=== PATIENT | male | born 1990 | race Caucasian/White ===

== ENCOUNTER 2019-02-25 05:37 | Outpatient (CLI) | payer OTHER ==
[~2019-02-25] VITALS: Ht 165.1 cm; Wt 64.9 kg
== END 2019-02-25 13:19 | disposition home or self-care (01) ==
LOC: PREOP 05:37
PROVIDERS: ATTEND Surgery
DX: Z01.818 Encounter for other preprocedural examination (principal)

== ENCOUNTER 2019-02-27 12:53 | Day surgery (SDC) | payer OTHER ==
[~2019-02-27] VITALS: Ht 165.1 cm; Wt 64.9 kg
--- OUTSIDE RECORDS SUMMARY | 2019-02-27 12:58 | XMS REPORT | Continuity of Care Document ---
Author Organization Unknown Address Unknown Allergies There is no data. Medications There is no data. Problems There is no data. Procedures There is no data. Results Test Result Range CBC - 02/04/19 10:12 WHITE BLOOD CELL COUNT 6.8 Thousand/uL 3.8-10.8 RED BLOOD CELL COUNT 4.32 Million/uL 4.20-5.80 HEMOGLOBIN 14.1 g/dL 13.2-17.1 HEMATOCRIT 41.1 % 38.5-50.0 MCV 95.1 fL 80.0-100.0 MCH 32.6 pg 27.0-33.0 MCHC 34.3 g/dL 32.0-36.0 RDW 12.8 % 11.0-15.0 PLATELET COUNT 236 Thousand/uL 140-400 MPV 9.4 fL 7.5-12.5 ABSOLUTE NEUTROPHILS 4420 cells/uL 7217-8071 ABSOLUTE LYMPHOCYTES 1782 cells/uL 850-3900 ABSOLUTE MONOCYTES 408 cells/uL 200-950 ABSOLUTE EOSINOPHILS 143 cells/uL 15-500 ABSOLUTE BASOPHILS 48 cells/uL 0-200 NEUTROPHILS 65 % NRG LYMPHOCYTES 26.2 % NRG MONOCYTES 6.0 % NRG EOSINOPHILS 2.1 % NRG BASOPHILS 0.7 % NRG LIPASE - 02/04/19 10:12 LIPASE 7 U/L 7-60 AMYLASE - 02/04/19 10:12 AMYLASE 28 U/L 21-101 TSH - 02/04/19 10:12 TSH 0.46 mIU/L 0.40-4.50 Encounters ACCT No. Visit Date/Time Discharge Status Pt. Type Provider Facility Loc./Unit Complaint [id number] 02/04/2019 09:30:00 02/04/2019 23:59:59 CLS Outpatient [facility] [id number] 02/04/2019 09:30:00 Document Registration
[2019-02-27] MEDS ORDERED: LACTATED RINGERS 1,000 ML IV ONE (13:07)
[2019-02-27 13:30] VITALS: BP 124/87
[2019-02-27] MEDS ORDERED: HURRICAINE EXT TUBE (BENZOCAINE) XX PRN (13:30)
[2019-02-27] MEDS ORDERED: LACTATED RINGERS 1,000 ML IV STA (13:30)
[2019-02-27] MEDS ORDERED: PROPOFOL INJECTION 0 ML IV ONE (14:52)
[2019-02-27] MEDS ORDERED: MIDAZOLAM 2 MG/2 ML (VERSED) VIAL ONE (14:53)
--- NOTE | 2019-02-27 14:56 | Progress Note-Pre Operative ---
Pre-Operative Progress Note H&P Reviewed The H&P was reviewed, patient examined and no changes noted. Date Seen by Provider: Feb 27, 2019 Time Seen by Provider: 14:56 Date H&P Reviewed: Feb 27, 2019 Time H&P Reviewed: 14:56 Pre-Operative Diagnosis: unintentional wt loss CHARAN QUEVEDO DO Feb 27, 2019 14:56
[2019-02-27] MEDS ORDERED: PROPOFOL INJECTION 50 ML IV ONE (15:53)
--- NOTE | 2019-02-27 15:57 | Progress Note-Post Operative ---
Post-Operative Progess Note Surgeon (s)/Private Duty Lpn (s) Surgeon CHARAN QUEVEDO DO Private Duty Lpn: na Pre-Operative Diagnosis unintentional wt loss Post-Operative Diagnosis slight gastritis, normal colon Procedure & Operative Findings Date of Procedure 02/27/19 Procedure Performed/Findings egd c biopsies, colonoscopy Anesthesia Type per driver guide Estimated Blood Loss Estimated blood loss (mL): none Specimens/Packing Specimens Removed antrum, ge CHARAN QUEVEDO DO Feb 27, 2019 15:57
[2019-02-27] MEDS ORDERED: PANT40TA2 PO (15:59)
--- NOTE | 2019-02-27 16:00 | Discharge Inst-Simple/Standard ---
Discharge Inst-Standard Discharge Medications New, Converted or Re-Newed RX: Transmitted to Pharmacy Patient Instructions/Follow Up Plan of Care/Instructions/FU: 2 weeks Aakash Activity as Tolerated: Yes Discharge Diet: Regular Diet CHARAN QUEVEDO DO Feb 27, 2019 16:00
[2019-02-27 16:10] VITALS: BP 92/53
[2019-02-27 16:25] VITALS: BP 100/55
[2019-02-27 17:19] VITALS: BP 100/55
--- NOTE | 2019-02-27 20:48 | OPERATIVE REPORT ---
DATE OF SERVICE: 02/27/2019 PREOPERATIVE DIAGNOSIS: Unintentional weight loss. POSTOPERATIVE DIAGNOSES: Gastritis, normal colon. PROCEDURE: EGD with biopsies, colonoscopy. SURGEON: Charan Finn DO ANESTHESIA: Per [employer]. ESTIMATED BLOOD LOSS: None. COMPLICATIONS: None. INDICATIONS: The patient is a 29-year-old male with significant weight loss that has been unintentional. His primary care provider has wished for endoscopy has to be performed. The patient understands risks and benefits of procedure and wants to proceed with procedure. Consent was signed in the chart. PROCEDURE: The patient was taken to the endoscopy suite, placed in left lateral recumbent position. Timeout was performed. Scope was inserted into the mouth, down the esophagus, stomach and into the duodenum without difficulty. There were no polyps, masses or ulcerations in the duodenum. Scope was then slowly retracted back into the stomach, which was further insufflated. Erythematous changes consistent with slight gastritis were present. A biopsy of the antrum was obtained. Scope was then retroflexed noting no other pathology. There were no polyps, masses or ulcerations. Scope was then returned to its normal position, slowly withdrawn to the distal esophagus, which had normal appearance. Biopsy of the GE junction was obtained. Scope was then slowly retracted back until completely removed noting no other pathology. Digital rectal exam was performed with no palpable polyps, mass or ulcerations. Scope was inserted in the rectum and advanced all the way to the cecum with minimal difficulty. Prep was adequate. Scope was then slowly retracted back. There were no polyps, masses or ulcerations in the cecum, ascending, transverse, descending and sigmoid colon. Once in the rectum, scope was retroflexed noting no other pathology. Scope was returned to its normal position, slowly withdrawn until completely removed. The patient tolerated procedure well without any complications and taken to recovery room in stable condition. RECOMMENDATIONS: The patient was started on Protonix 40 mg daily. He will need repeat colonoscopy per routine screening guidelines. I will have him followup in the office in approximately two to three weeks and see how he is doing at that time. Job ID: [id number] DocumentID: [id number] Dictated Date: 02/27/2019 19:23:53 Demographer Date: 02/27/2019 20:48:19 Dictated By: CHARAN FINN DO
== END 2019-02-27 16:30 | disposition home or self-care (01) ==
LOC: ENDO 12:53
PROVIDERS: ATTEND Surgery
DX: K29.70 Gastritis, unspecified, without bleeding (principal); R63.4 Abnormal weight loss; F17.210 Nicotine dependence, cigarettes, uncomplicated